=== PATIENT | female | born 1945 | race Caucasian/White ===

== ENCOUNTER 2018-04-08 18:24 | Emergency (ER) | payer MEDICARE, OTHER ==
[~2018-04-08] VITALS: Ht 167.6 cm; Wt 70.0 kg
[2018-04-08 18:27] VITALS: Ht 167.6 cm; Wt 70.0 kg
[2018-04-08] MEDS ORDERED: ONDANSETRON (ODT) 4 MG TAB ODT STA (18:34)
[2018-04-08] MEDS ORDERED: HYDROCODONE/APAP (10/325) TAB PO ONE (19:00)
[2018-04-08] MEDS ORDERED: IBUP800T48 PO (20:58)
[2018-04-08] MEDS ORDERED: IBUPROFEN 800 MG TAB ONE (21:05)
[2018-04-08 21:08] VITALS: BP 133/75; PULSE 78; RESP 20
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
[2018-04-08] MEDS ORDERED: IBUPROFEN 800 MG TAB PO ONE (21:30)
== END 2018-04-08 21:12 | disposition home or self-care (01) ==
LOC: E/R 18:24
DX: S13.4XXA Sprain of ligaments of cervical spine, initial encounter (principal); S80.02XA Contusion of left knee, initial encounter; I10 Essential (primary) hypertension; E11.9 Type 2 diabetes mellitus without complications; V49.40XA Driver injured in collision with unspecified motor vehicles in traffic accident, initial encounter
CPT/HCPCS: 70450; 72125; 72128; 72131; 73562